=== PATIENT | female | born 1930 | race Caucasian/White ===

== ENCOUNTER 2017-08-04 12:41 | Inpatient (IN) | payer MEDICARE, BC ==
[~2017-08-04] VITALS: Ht 160 cm; Wt 62.9 kg
--- NOTE | 2017-08-04 14:15 | Diagnostic Imaging Report ---
PROCEDURE:ABDOMEN ACUTE SERIES W/PA CXR COMPARISON:None. INDICATIONS:STOMACH PAIN/SHORTNESS OF BREATH FINDINGS: CHEST: Dense annular calcifications overlies the cardiac silhouette. Lung are clear without evidence of pneumonia or pulmonary edema. Pleural spaces are clear. Mildly tortuous aorta. Cardiac silhouette is normal in size. BOWEL PATTERN: Nonobstructive. Normal amount stool in the colon. No free air under the hemidiaphragms. SOFT TISSUES: No acute findings. BONES: Degenerative changes of the thoracolumbar spine and glenohumeral joints. Partially visualized right femoral intramedullary leela. CONCLUSION: 1. No acute thoracic abnormality. 2. No evidence of bowel obstruction. Dictated by: Micheal Samuel M.D. on 08/04/2017 at 14:25 Electronically approved by: Micheal Samuel M.D. on 08/04/2017 at 14:25
[2017-08-04 15:27] LABS: EOSINOPHILS # (AUTO) 0.2 (0.0-0.4); EOSINOPHILS % 5.5 % (0.0-6.0); HEMATOCRIT 39.8 % (34.2-44.1); LYMPHOCYTES % 26.3 % (18.0-39.1); MEAN CORPUSCULAR HEMOGLOBIN 32.5 pg (28-32); MEAN CORPUSCULAR HGB CONC 32.7 g/dL (31-35); MEAN CORPUSCULAR VOLUME 99.5 fL (81-99); MONOCYTES # (AUTO) 0.4 (0.2-0.8); MONOCYTES % 9.6 % (4.4-11.3); NEUTROPHILS # (AUTO) 2.2 (2.1-6.9); NEUTROPHILS % 57.1 % (38.7-80.0); PLATELET COUNT 249 x10e3/uL (140-360); RED CELL DISTRIBUTION WIDTH 15.8 % (11.7-14.4)
[2017-08-04 15:49] LABS: ALBUMIN 3.2 g/dL (3.5-5.0); ALBUMIN/GLOBULIN RATIO 0.9 (0.8-2.0); ALKALINE PHOSPHATASE 56 IU/L (40-150); AMYLASE 66 U/L (25-125); ANION GAP 14.3 mmol/L (8-16); BLOOD UREA NITROGEN 14 mg/dL (7-26); BUN/CREATININE RATIO 9 (6-25); CALCIUM 9.2 mg/dL (8.4-10.2); CARBON DIOXIDE 26 mmol/L (22-29); CHLORIDE 104 mmol/L (98-107); CREATINE KINASE 19 IU/L (29-168); CREATININE, SERUM 1.53 mg/dL (0.57-1.11); EST GLOMERULAR FILTRATION RATE 32 ML/MIN (60-); GLUCOSE 107 mg/dL (74-118); LIPASE 22 U/L (8-78); POTASSIUM 3.3 mmol/L (3.5-5.1); SODIUM 141 mmol/L (136-145)
[2017-08-04 15:51] LABS: ALANINE AMINOTRANSFERASE < 6 IU/L (0-55)
[2017-08-04] MEDS: SODIUM CHLORIDE 0.9% 1000ML 1,000 ML IV SCH ×2 (16:00→20:07)
[2017-08-04 20:00] VITALS: BP 120/55
[2017-08-05] VITALS (7 sets, daily range): BP systolic 120–175; BP diastolic 56–77
[2017-08-05] MEDS: SODIUM CHLORIDE 0.9% 1000ML 1,000 ML IV SCH ×2 (06:18→21:23)
[2017-08-05 07:24] LABS: EOSINOPHILS # (AUTO) 0.4 (0.0-0.4); EOSINOPHILS % 9.1 % (0.0-6.0); HEMATOCRIT 34.3 % (34.2-44.1); LYMPHOCYTES # (AUTO) 1.1 (1.0-3.2); LYMPHOCYTES % 26.9 % (18.0-39.1); MEAN CORPUSCULAR HEMOGLOBIN 32.2 pg (28-32); MEAN CORPUSCULAR HGB CONC 32.1 g/dL (31-35); MEAN CORPUSCULAR VOLUME 100.3 fL (81-99); MONOCYTES # (AUTO) 0.6 (0.2-0.8); MONOCYTES % 14.8 % (4.4-11.3); NEUTROPHILS # (AUTO) 1.9 (2.1-6.9); PLATELET COUNT 198 x10e3/uL (140-360); RED BLOOD COUNT 3.42 x10e6/uL (3.6-5.1)
[2017-08-05 07:51] LABS: ALBUMIN 2.5 g/dL (3.5-5.0); ALBUMIN/GLOBULIN RATIO 0.9 (0.8-2.0); ALKALINE PHOSPHATASE 48 IU/L (40-150); ANION GAP 10.2 mmol/L (8-16); BLOOD UREA NITROGEN 12 mg/dL (7-26); BUN/CREATININE RATIO 10 (6-25); CALCIUM 8.3 mg/dL (8.4-10.2); CARBON DIOXIDE 26 mmol/L (22-29); CHLORIDE 111 mmol/L (98-107); CREATININE, SERUM 1.21 mg/dL (0.57-1.11); EST GLOMERULAR FILTRATION RATE 42 ML/MIN (60-); GLUCOSE 98 mg/dL (74-118); MAGNESIUM 1.4 MG/DL (1.3-2.1); PHOSPHORUS 1.8 MG/DL (2.3-4.7); POTASSIUM 3.2 mmol/L (3.5-5.1); SODIUM 144 mmol/L (136-145)
[2017-08-05 07:58] LABS: ALANINE AMINOTRANSFERASE < 6 IU/L (0-55)
[2017-08-05] MEDS: POTASSIUM CHLORIDE 20MEQ/100ML 200 ML IV SCH ×2 (09:41→14:10)
[2017-08-05] MEDS ORDERED: CLOPIDOGREL75 MG PO (10:02)
[2017-08-05] MEDS ORDERED: DIOVAN80 MG PO (10:02)
[2017-08-05] MEDS ORDERED: CARVEDILOL3.125 MG PO (10:02)
[2017-08-05] MEDS ORDERED: OMEPRAZOLE40 MG PO (15:01)
[2017-08-05] MEDS ORDERED: ASPIR 8181 MG PO (15:01)
[2017-08-05] MEDS ORDERED: LEVOTHYROXINE88 MCG PO (15:01)
[2017-08-05] MEDS ORDERED: ARICEPT5 MG PO (15:01)
--- NOTE | 2017-08-05 16:19 | History and Physical ---
PRIMARY CARE PROVIDER: Dr. Ortiz Davis. CHIEF COMPLAINT: Failure to thrive. HISTORY OF PRESENT ILLNESS: Ms. Bertrand is an 86-year-old lady with slowly progressing senile dementia who has had poor p.o. intake, poor appetite of both food and fluid for the past couple of weeks, less than 20% of her meals. She is becoming progressively weaker and a little more somnolent. REVIEW OF SYSTEMS: She denies fever, chills or weight loss. She denies sinus congestion or sore throat. She denies chest pain or palpitations. She denies shortness of breath, wheezing or cough. She denies abdominal pain, nausea, vomiting or melena. She denies dysuria or flank pain. She denies rash or pruritus. She denies bleeding or bruising. She denies joint pain or swelling. She denies headache, vertigo or loss of consciousness. Denies depression, agitation, homicidal or suicidal ideation. PAST MEDICAL HISTORY: Significant for hypertension, coronary artery disease, carotid Narrowing and dementia. She has a history of bilateral carotid endarterectomies, coronary stent, bilateral knee replacements and an open reduction and internal fixation of the femur for femur fracture. REGULAR MEDICATIONS: Aspirin 81 mg daily. Aricept 10 mg at bedtime. Levothyroxine 88 mcg daily. Omeprazole 40 mg daily. Carvedilol 3.125 mg twice daily. Plavix 75 mg daily. Valsartan 80 mg daily. ALLERGIES: THE PATIENT HAS A STATED ALLERGY TO SULFA DRUGS AND PENICILLIN. FAMILY HISTORY: Remarkable only for hypertension. SOCIAL HISTORY: The patient is . [place] is her primary language. She is and she is her with her . She does not smoke, drink or use illegal drugs and she requires some supervision, but she is generally independently functioning. PHYSICAL EXAM: PSYCHIATRIC: She is awake, alert, oriented mostly and in no acute distress. VITAL SIGNS: Blood pressure 140/66. Pulse 72 and regular. Respiratory 20. O2 sat 96% on room air. Temperature 98.4. HEENT: Head is atraumatic. Her eyes are anicteric with clear conjunctivae. Ears and nares are without erythema or discharge. Oropharynx is clear. NECK: Supple with no mass or thyromegaly. LYMPHATIC SYSTEM: He has no palpable cervical, axillary or inguinal adenopathy. CARDIOVASCULAR: Her heart has a regular rate and rhythm without murmurs or extra heart sounds. She has no carotid bruit. She has no peripheral edema. Has weak dorsal pedal pulses. RESPIRATORY: Lungs are clear to auscultation and percussion with normal respiratory effort. GASTROINTESTINAL: Abdomen is soft without organomegaly, masses or tenderness. She has normal bowel sounds present. CUTANEOUS: Her skin is warm and dry to touch with no rash or skin breakdown. MUSCULOSKELETAL: Joints are in normal alignment without erythema or swelling. She has no calf tenderness. NEUROLOGIC: Exam is nonfocal with intact cranial nerves and no motor or sensory deficits. DIAGNOSTIC STUDIES: Abdominal series: Her chest x-ray shows no acute disease. KUB shows normal bowel gas pattern. UA is pending. Her chemistry shows potassium of 3.3. Rest of her electrolytes are normal. CO2 is 26. Creatinine 1.53. BUN 32 for a GFR of 32. Her baseline is unknown. Calcium is 9.2 and glucose is 107. Phosphate 108. Magnesium 1.4. Transaminases, bilirubin and alkaline phos are normal. Lipase is 22. CBC shows a white count of 3.84 with a normal differential. Hemoglobin 13.0, hematocrit 39.8 and platelet count 249,000. IMPRESSION AND PLAN 1. Acute kidney injury likely due to dehydration. The patient will be rehydrated briskly. Will monitor renal function. 2. Dehydration/failure to thrive. The patient is receiving IV fluid hydration and will start a trial of Remeron at bedtime and Megace suspension twice daily to improve her appetite and increase p.o. intake. 3. Hypertension complicated by coronary artery disease. Will continue her Coreg, Losartan, Plavix and aspirin. 4. Dementia. Will continue supportive care and continue her Aricept. 5. For prophylaxis the patient will be using omeprazole for GI prophylaxis and SCDs for DVT prophylaxis. Job#: [id number]
[2017-08-05] MEDS: MEGACE 400MG/ 10ML CUP PO SCH (16:37)
[2017-08-05] MEDS: CARVEDILOL 3.125 MG TAB PO SCH (16:37)
[2017-08-05] MEDS: FAMOTIDINE 20 MG TAB PO SCH (16:37)
[2017-08-05 16:54] LABS: BILIRUBIN,URINE NEGATIVE (NEGATIVE); COLOR,URINE YELLOW (YELLOW); KETONES,URINE NEGATIVE (NEGATIVE); LEUKOCYTE ESTERASE ,URINE NEGATIVE (NEGATIVE); NITRITE,URINE NEGATIVE (NEGATIVE); PROTEIN,URINE DIPSTICK NEGATIVE (NEGATIVE); URINE UROBILINOGEN 0.2 mg/dL (0.2 - 1)
[2017-08-05 16:56] LABS: CLARITY,URINE CLEAR (CLEAR)
[2017-08-05 17:08] LABS: EPITHELIAL CELLS,URINE RARE /LPF
[2017-08-05] MEDS ORDERED: DONEPEZIL HCL 5 MG TAB PO SCH (21:00)
[2017-08-05] MEDS ORDERED: MIRTAZAPINE 15 MG TAB PO SCH (21:00)
[2017-08-06] VITALS: BP 162/72
[2017-08-06] MEDS: SODIUM CHLORIDE 0.9% 1000ML 1,000 ML IV SCH (03:07)
[2017-08-06 04:00] VITALS: BP 162/72
[2017-08-06 07:16] LABS: BASOPHILS # (AUTO) 0.1 (0.0-0.1); BASOPHILS % 1.1 % (0.0-1.0); EOSINOPHILS # (AUTO) 0.4 (0.0-0.4); HEMATOCRIT 37.5 % (34.2-44.1); HEMOGLOBIN 12.1 g/dL (12.0-16.0); LYMPHOCYTES # (AUTO) 1.8 (1.0-3.2); LYMPHOCYTES % 38.4 % (18.0-39.1); MEAN CORPUSCULAR HEMOGLOBIN 32.4 pg (28-32); MEAN CORPUSCULAR HGB CONC 32.3 g/dL (31-35); MEAN CORPUSCULAR VOLUME 100.5 fL (81-99); MONOCYTES # (AUTO) 0.5 (0.2-0.8); MONOCYTES % 11.6 % (4.4-11.3); NEUTROPHILS # (AUTO) 1.9 (2.1-6.9); NEUTROPHILS % 40.7 % (38.7-80.0); PLATELET COUNT 224 x10e3/uL (140-360); RED BLOOD COUNT 3.73 x10e6/uL (3.6-5.1); RED CELL DISTRIBUTION WIDTH 16.2 % (11.7-14.4)
[2017-08-06] MEDS ORDERED: LEVOTHYROXINE SODIUM 88 MCG TAB PO SCH (07:30)
[2017-08-06 07:35] LABS: ANION GAP 10.6 mmol/L (8-16); CALCIUM 8.6 mg/dL (8.4-10.2); CREATININE, SERUM 1.14 mg/dL (0.57-1.11); POTASSIUM 3.6 mmol/L (3.5-5.1)
[2017-08-06 08:00] LABS: THYROID STIMULATING HORMONE 12.538 uIU/mL (0.350-4.940)
[2017-08-06] MEDS: FAMOTIDINE 20 MG TAB PO SCH ×2 (08:28→16:43)
[2017-08-06] MEDS: CARVEDILOL 3.125 MG TAB PO SCH ×2 (08:28→16:44)
[2017-08-06] MEDS: MEGACE 400MG/ 10ML CUP PO SCH ×2 (08:28→16:44)
[2017-08-06 08:35] VITALS: BP 191/89
[2017-08-06] MEDS ORDERED: VALSARTAN 80 MG TAB PO SCH (09:00)
[2017-08-06] MEDS ORDERED: CLOPIDOGREL BISULFATE 75 MG TAB PO SCH (09:00)
[2017-08-06] MEDS ORDERED: ASPIRIN 81 MG CHEW TAB PO SCH (09:00)
[2017-08-06 09:26] VITALS: BP 191/89
[2017-08-06 11:59] VITALS: BP 136/62
[2017-08-06 16:33] VITALS: BP 148/70
[2017-08-06] MEDS ORDERED: Megestrol Acetate PO (18:46)
[2017-08-06] MEDS ORDERED: MIRTAZAPINE15 MG PO (18:46)
[2017-08-06] MEDS ORDERED: FAMOTIDINE20 MG PO (18:53)
--- NOTE | 2017-08-06 20:53 | Discharge Summary ---
PRIMARY CARE PROVIDER: Dr. Ortiz Davis PERTINENT HISTORY AND PHYSICAL INFORMATION: Ms. Bertrand is an 86-year-old lady with slowly progressing senile dementia, who had poor oral intake, poor appetite of both food and fluids for 2 weeks prior to admission, less than 20% of her meals. She has become progressively weaker and more somnolent. Past medical history is significant for hypertension, coronary artery disease, carotid narrowing and dementia. She has an underlying history of bilateral carotid endarterectomies, carotid stent, bilateral knee replacements, and an open reduction and internal fixation of the femur for femur fracture. The patient's chest x-ray showed no acute disease. KUB showed normal gas pattern. UA was negative. Her potassium was 3.3. The rest of her electrolytes were normal. CO2 26, BUN 32, creatinine 1.53, GFR 32. Magnesium 1.4. Lipase 22. White blood cell count 3.84, hemoglobin 13, hematocrit 39.8, platelet count 249,000. ADMITTING DIAGNOSES 1. Acute kidney injury, likely due to dehydration. 2. Dehydration with failure to thrive. 3. Hypertension complicated by coronary artery disease. 4. Dementia. DISCHARGE DIAGNOSES 1. Acute kidney injury, likely due to dehydration. 2. Dehydration with failure to thrive. 3. Hypertension complicated by coronary artery disease. 4. Dementia. Today, on the day of discharge, the patient is a bit sleepy, but is awake, alert, mildly confused. Her is at the bedside. She denies pain. states she ate half of her supper and drank nearly an entire bottle of Ensure, which she has not been doing before. She had a bowel movement yesterday. Per the , home health is already set up through Dr. Davis's office. Physical examination: Temperature 99.1, heart rate 73, blood pressure 148/70, respirations 18, oxygen saturation 95%. General: No acute distress. Patient is supine in bed. Lungs are clear to auscultation. Respiratory pattern is even and unlabored. HEENT: Conjunctivae are pink. Sclerae are anicteric. The extraocular eye movements are intact. The neck is supple. Cardiovascular: S1 and S2, regular rate and rhythm. No murmur appreciated. Abdomen: Bowel sounds positive. Soft, nontender. Extremities are without pitting edema. No clubbing, cyanosis, or signs or symptoms of DVT. Neurologic: GCS 14 to 15, nonfocal. Lab work from today: B-type natriuretic peptide 617.9. Sodium 147, potassium 3.6, chloride 115, CO2 25, BUN 11, creatinine 1.14. WBC 4.64, hemoglobin 12.1, hematocrit 37.5, platelets 224. The patient will be discharged today. She is to continue her home medications. Prescriptions for Pepcid, Remeron and Megace have been signed. Continue on her cardiac diet. Encourage p.o. fluid intake and food intake. The patient is to follow up with PCP in 1 to 2 weeks. Activities as tolerated. Dictated by Aly Kapadia NP. CLAUDE PARKER MD Job#: [id number]
== END 2017-08-06 19:39 | disposition home or self-care (01) | DRG 682 ==
LOC: ER 12:41 → ERHOLD 15:31 → ER 18:46 → MED/SURG 18:47
PROVIDERS: ADMIT Internal Medicine; ATTEND Internal Medicine
DX: N17.9 Acute kidney failure, unspecified (principal); E43 Unspecified severe protein-calorie malnutrition; E87.0 Hyperosmolality and hypernatremia; E86.0 Dehydration; F03.90 Unspecified dementia, unspecified severity, without behavioral disturbance, psychotic disturbance, mood disturbance, and anxiety; R62.7 Adult failure to thrive; I10 Essential (primary) hypertension; I25.10 Atherosclerotic heart disease of native coronary artery without angina pectoris; E03.9 Hypothyroidism, unspecified; M19.90 Unspecified osteoarthritis, unspecified site; Z68.24 Body mass index [BMI] 24.0-24.9, adult
CPT/HCPCS: 36415; 74022; 80048; 80053; 81001; 82150; 82550; 82553; 83690; 83735; 83880; 84100; 84443; 84484; 85025; 87086; 93005; 96360; 99284; J3480; J7030

== ENCOUNTER 2020-10-11 07:46 | Inpatient (IN) | payer MEDICARE, BC ==
[~2020-10-11] VITALS: Ht 160 cm; Wt 62.6 kg
[~2020-10-11 07:46] MED LIST: ARICEPT5 MG PO; ASPIR 8181 MG PO; CARVEDILOL3.125 MG PO; CLOPIDOGREL75 MG PO; DIOVAN80 MG PO; FAMOTIDINE20 MG PO; LEVOTHYROXINE88 MCG PO; MIRTAZAPINE15 MG PO; Megestrol Acetate PO; OMEPRAZOLE40 MG PO
[2020-10-11] MEDS ORDERED: MORPHINE SULFATE INJ 4 MG/ML INJ 1ML IV STA (07:49)
[2020-10-11] MEDS ORDERED: ONDANSETRON HCL INJ 2MG/ML 2ML 2 MG/ML VIAL IV STA (07:49)
[2020-10-11 08:15] LABS: BASOPHILS % 0.3 % (0.0-1.0); EOSINOPHILS # (AUTO) 0.1 (0.0-0.4); EOSINOPHILS % 1.7 % (0.0-6.0); HEMATOCRIT 35.1 % (34.2-44.1); HEMOGLOBIN 11.2 g/dL (12.0-16.0); LYMPHOCYTES # (AUTO) 2.1 (1.0-3.2); LYMPHOCYTES % 36.3 % (18.0-39.1); MEAN CORPUSCULAR HEMOGLOBIN 31.3 pg (28-32); MEAN CORPUSCULAR HGB CONC 31.9 g/dL (31-35); MONOCYTES # (AUTO) 0.4 (0.2-0.8); MONOCYTES % 7.2 % (4.4-11.3); NEUTROPHILS # (AUTO) 3.1 (2.1-6.9); PLATELET COUNT 252 x10e3/uL (140-360); RED BLOOD COUNT 3.58 x10e6/uL (3.6-5.1); RED CELL DISTRIBUTION WIDTH 14.4 % (11.7-14.4)
[2020-10-11 08:35] LABS: ALBUMIN/GLOBULIN RATIO 1.2 (0.8-2.0); ANION GAP 15.6 mmol/L (8-16); CALCIUM 8.1 mg/dL (8.4-10.2); CREATININE, SERUM 1.02 mg/dL (0.57-1.11); POTASSIUM 4.6 mmol/L (3.5-5.1)
[2020-10-11 08:56] LABS: CLARITY,URINE CLEAR (CLEAR); COLOR,URINE YELLOW (YELLOW); LEUKOCYTE ESTERASE ,URINE NEGATIVE (NEGATIVE)
[2020-10-11 08:57] LABS: KETONES,URINE NEGATIVE (NEGATIVE); NITRITE,URINE NEGATIVE (NEGATIVE); PROTEIN,URINE DIPSTICK NEGATIVE (NEGATIVE); URINE UROBILINOGEN 0.2 mg/dL (0.2 - 1)
[2020-10-11 09:09] LABS: BACTERIA,URINE RARE /HPF; EPITHELIAL CELLS,URINE FEW /LPF; RBC,URINE 0-5 /HPF (0-5)
[2020-10-11] MEDS ORDERED: ATORVASTATIN CA10 MG PO (09:44)
[2020-10-11] MEDS ORDERED: PROTONIX20 MG PO (09:44)
[2020-10-11] MEDS ORDERED: MORPHINE SULFATE INJ 2 MG/ML SYR IV PRN (10:15)
[2020-10-11] MEDS ORDERED: ONDANSETRON HCL INJ 2MG/ML 2ML 2 MG/ML VIAL IV PRN (10:15)
[2020-10-11] MEDS: SODIUM CHLORIDE 0.9% 1000ML 1,000 ML IV SCH ×2 (10:18→16:04)
[2020-10-11 13:30] VITALS: BP 124/56
[2020-10-11] MEDS ORDERED: MAGNESIUM HYDROXIDE 30 ML UDC PO PRN (14:30)
[2020-10-11 14:32] LABS: CREATINE KINASE MB 0.6 ng/mL (0-5.0)
[2020-10-11 15:53] VITALS: BP 124/56
[2020-10-11] MEDS: MORPHINE SULFATE INJ 4 MG/ML INJ 1ML IV PRN (16:04)
[2020-10-11] MEDS: ONDANSETRON HCL INJ 2MG/ML 2ML 2 MG/ML VIAL IV PRN (16:04)
[2020-10-11] MEDS: CARVEDILOL 3.125 MG TAB PO SCH (17:00)
[2020-10-11 20:00] VITALS: BP 110/41
[2020-10-11] MEDS: MELATONIN 3 MG TAB PO SCH (21:00)
[2020-10-11] MEDS: MIRTAZAPINE 15 MG TAB PO SCH (21:48)
[2020-10-11] MEDS: ATORVASTATIN 10 MG TAB PO SCH (21:48)
[2020-10-11 21:57] VITALS: BP 110/41
[2020-10-12] VITALS (9 sets, daily range): BP systolic 79–129; BP diastolic 38–59
[2020-10-12] MEDS ORDERED: FUROSEMIDE INJ 10 MG/ML 2 ML VIAL IV ONE
[2020-10-12] MEDS: MORPHINE SULFATE INJ 4 MG/ML INJ 1ML IV PRN ×2 (01:23→08:50)
[2020-10-12] MEDS: LEVOTHYROXINE SODIUM 88 MCG TAB PO SCH (05:21)
[2020-10-12 06:26] LABS: BASOPHILS % 0.5 % (0.0-1.0); EOSINOPHILS # (AUTO) 0.3 (0.0-0.4); EOSINOPHILS % 3.7 % (0.0-6.0); HEMATOCRIT 31.4 % (34.2-44.1); LYMPHOCYTES # (AUTO) 0.8 (1.0-3.2); LYMPHOCYTES % 9.4 % (18.0-39.1); MEAN CORPUSCULAR HEMOGLOBIN 31.5 pg (28-32); MEAN CORPUSCULAR HGB CONC 31.8 g/dL (31-35); MEAN CORPUSCULAR VOLUME 99.1 fL (81-99); MONOCYTES # (AUTO) 0.6 (0.2-0.8); MONOCYTES % 6.6 % (4.4-11.3); NEUTROPHILS # (AUTO) 6.9 (2.1-6.9); NEUTROPHILS % 79.5 % (38.7-80.0); PLATELET COUNT 204 x10e3/uL (140-360); RED BLOOD COUNT 3.17 x10e6/uL (3.6-5.1); RED CELL DISTRIBUTION WIDTH 14.6 % (11.7-14.4)
[2020-10-12 06:56] LABS: ALBUMIN 2.6 g/dL (3.5-5.0); ANION GAP 12.4 mmol/L (8-16); CREATININE, SERUM 1.38 mg/dL (0.57-1.11); POTASSIUM 4.4 mmol/L (3.5-5.1)
[2020-10-12] MEDS ORDERED: VALSARTAN 80 MG TAB PO SCH (09:00)
[2020-10-12] MEDS: DOCUSATE SODIUM 100 MG CAP PO SCH (09:10)
[2020-10-12] MEDS: PANTOPRAZOLE SOD 40 MG TABEC PO SCH (09:11)
[2020-10-12] MEDS: CARVEDILOL 3.125 MG TAB PO SCH ×2 (09:11→17:00)
[2020-10-12] MEDS: MORPHINE SULFATE INJ 2 MG/ML SYR IV PRN (13:32)
[2020-10-12] MEDS: ENOXAPARIN 30 MG/0.3 ML SYR SC SCH (17:05)
[2020-10-12] MEDS: MIRTAZAPINE 15 MG TAB PO SCH (21:00)
[2020-10-12] MEDS: MELATONIN 3 MG TAB PO SCH (21:00)
[2020-10-12] MEDS: ATORVASTATIN 10 MG TAB PO SCH (21:19)
[2020-10-13] VITALS (8 sets, daily range): BP systolic 105–126; BP diastolic 46–53
[2020-10-13] MEDS: MORPHINE SULFATE INJ 2 MG/ML SYR IV PRN ×2 (00:16→22:14)
[2020-10-13] MEDS: MIRTAZAPINE 15 MG TAB PO SCH ×2 (01:13→20:42)
[2020-10-13] MEDS: ACETAMINOPHEN/CODEINE 300MG - 30MG TAB PO PRN (03:45)
[2020-10-13 05:01] LABS: BASOPHILS % 0.5 % (0.0-1.0); EOSINOPHILS # (AUTO) 0.4 (0.0-0.4); EOSINOPHILS % 4.8 % (0.0-6.0); HEMATOCRIT 30.1 % (34.2-44.1); HEMOGLOBIN 9.4 g/dL (12.0-16.0); LYMPHOCYTES # (AUTO) 0.8 (1.0-3.2); LYMPHOCYTES % 10.3 % (18.0-39.1); MEAN CORPUSCULAR HEMOGLOBIN 31.3 pg (28-32); MEAN CORPUSCULAR HGB CONC 31.2 g/dL (31-35); MEAN CORPUSCULAR VOLUME 100.3 fL (81-99); MONOCYTES # (AUTO) 0.6 (0.2-0.8); MONOCYTES % 7.7 % (4.4-11.3); NEUTROPHILS # (AUTO) 5.9 (2.1-6.9); NEUTROPHILS % 76.4 % (38.7-80.0); PLATELET COUNT 208 x10e3/uL (140-360); RED CELL DISTRIBUTION WIDTH 14.7 % (11.7-14.4)
[2020-10-13] MEDS: LEVOTHYROXINE SODIUM 88 MCG TAB PO SCH (05:08)
[2020-10-13 05:25] LABS: ANION GAP 13.7 mmol/L (8-16); CALCIUM 8.2 mg/dL (8.4-10.2); CREATININE, SERUM 1.74 mg/dL (0.57-1.11); POTASSIUM 4.7 mmol/L (3.5-5.1)
[2020-10-13] MEDS: DOCUSATE SODIUM 100 MG CAP PO SCH (09:00)
[2020-10-13] MEDS: CARVEDILOL 3.125 MG TAB PO SCH ×2 (09:00→17:00)
[2020-10-13] MEDS: PANTOPRAZOLE SOD 40 MG TABEC PO SCH (09:00)
[2020-10-13] MEDS: ENOXAPARIN 30 MG/0.3 ML SYR SC SCH (17:29)
[2020-10-13] MEDS: ATORVASTATIN 10 MG TAB PO SCH (20:42)
[2020-10-13] MEDS: MELATONIN 3 MG TAB PO SCH (21:00)
[2020-10-13] MEDS: ONDANSETRON HCL INJ 2MG/ML 2ML 2 MG/ML VIAL IV PRN (22:14)
[2020-10-14] MEDS: ACETAMINOPHEN/CODEINE 300MG - 30MG TAB PO PRN (04:46)
[2020-10-14 05:52] VITALS: BP 140/53
[2020-10-14] MEDS: MORPHINE SULFATE INJ 2 MG/ML SYR IV PRN (06:21)
[2020-10-14] MEDS: LEVOTHYROXINE SODIUM 88 MCG TAB PO SCH (06:21)
[2020-10-14] MEDS: ONDANSETRON HCL INJ 2MG/ML 2ML 2 MG/ML VIAL IV PRN (06:22)
[2020-10-14 08:12] VITALS: BP 98/51
[2020-10-14] MEDS: PANTOPRAZOLE SOD 40 MG TABEC PO SCH (09:00)
[2020-10-14] MEDS: DOCUSATE SODIUM 100 MG CAP PO SCH (09:00)
[2020-10-14] MEDS: CARVEDILOL 3.125 MG TAB PO SCH (09:00)
[2020-10-14 09:32] VITALS: BP 98/51
[2020-10-14] MEDS ORDERED: COREG3.125 MG PO (10:44)
[2020-10-14] MEDS ORDERED: TYLENOL # 31 EA PO (10:44)
[2020-10-14] MEDS ORDERED: MELATONIN3 MG PO (10:44)
[2020-10-14] MEDS ORDERED: MILK OF MA400 MG/5 M PO (10:44)
[2020-10-14] MEDS ORDERED: LOVENOX30 MG/0.3 SC (10:44)
[2020-10-14] MEDS ORDERED: Morphine Sulfate Inj IV (10:44)
[2020-10-14] MEDS ORDERED: ONDANSETRON4 MG/2 M1 IV (10:44)
[2020-10-14] MEDS ORDERED: COLACE100 MG PO (10:44)
[2020-10-14] MEDS ORDERED: MORPHINE SULFATE INJ 2 MG/ML SYR IV PRN ×2 (10:45→11:00)
[2020-10-14 12:15] VITALS: BP 126/51
== END 2020-10-14 14:46 | disposition hospice, inpatient (51) | DRG 535 ==
LOC: ER 07:51 → ERHOLD 10:04 → MED/SURG 11:22
PROVIDERS: ADMIT Internal Medicine; ATTEND Internal Medicine
DX: S72.141A Displaced intertrochanteric fracture of right femur, initial encounter for closed fracture (principal); I50.33 Acute on chronic diastolic (congestive) heart failure; W18.39XA Other fall on same level, initial encounter; Y93.89 Activity, other specified; Y92.013 Bedroom of single-family (private) house as the place of occurrence of the external cause; Z88.0 Allergy status to penicillin; Z88.2 Allergy status to sulfonamides; E03.9 Hypothyroidism, unspecified; I25.10 Atherosclerotic heart disease of native coronary artery without angina pectoris; K21.9 Gastro-esophageal reflux disease without esophagitis; F03.90 Unspecified dementia, unspecified severity, without behavioral disturbance, psychotic disturbance, mood disturbance, and anxiety; Z95.5 Presence of coronary angioplasty implant and graft; R59.0 Localized enlarged lymph nodes; R91.8 Other nonspecific abnormal finding of lung field; I11.0 Hypertensive heart disease with heart failure; Z66 Do not resuscitate; I05.0 Rheumatic mitral stenosis; D64.9 Anemia, unspecified; Z20.822 Contact with and (suspected) exposure to COVID-19
CPT/HCPCS: 36415; 70450; 71045; 71250; 80048; 80053; 81001; 82550; 82553; 83880; 84484; 85025; 93005; 93306; 99251; 99284; J1650; J1940; J2270; J2405; J7030; U0002